=== PATIENT | female | born 2005 | race African-American/Black ===

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

== ENCOUNTER 2025-01-01 19:01 | Emergency (ER) | payer OTHER ==
[2025-01-01] MEDS ORDERED: Ondansetron PF 4 MG/2 ML Vial ONE (19:23)
[2025-01-01 19:31] LABS: Bilirubin Neg (Negative); Blood, Urine 10 (Negative); Clarity Clear (Clear); Glucose, Urine (Dipstick) Normal (Negative); Ketone, Urine Negative (Negative); Leukocyte 500 (Negative); Nitrite Negative (Negative); Protein, Urine (Dipstick) 15 mg/dl (Neg-Trace); Specific Gravity, Urine 1.025 (1.005-1.030); Urobilinogen Normal mg/dL (Less than 2)
[2025-01-01 19:48] LABS: Bacteria/HPF Rare-Few HPF (None Seen); CAUTI Indications for Culture Pelvic or flank pain; Mucous/LPF Rare LPF (<2+); RBC/HPF 0-3 HPF (0-3); Squamous Epithelial 0-3 HPF (0-3)
[2025-01-01 19:49] LABS: Sperm/HPF Rare HPF (None Seen)
[2025-01-01 19:50] LABS: Urine Culture Reflex Yes Yes
[2025-01-01 20:07] LABS: #Basophils Less than 0.03 10x3/uL (0.0-0.2); #Eosinophils 0.13 10x3/uL (0.0-0.5); #Monocytes 0.56 10x3/uL (0.0-1.1); #Neutrophils 6.36 10x3/uL (1.5-8.4); %Basophils 0.2 % (0.0-2.0); %Eosinophils 1.4 % (0.0-6.0); %Lymphocytes 23.4 % (18.0-47.0); %Neutrophils 68.8 % (40.0-75.0); Hematocrit 35.5 % (34.9-44.5); Hemoglobin 11.1 g/dL (12.0-15.5); Mean Corpuscular HGB CONC 31.3 g/dL (32.0-36.0); Mean Corpuscular Hemoglobin 23.3 pg (27.0-33.0); Mean Corpuscular Volume 74.6 fL (81.6-98.3); Mean Platelet Volume 9.9 fL (7.4-10.4); Platelet Count 320 10x3/uL (150-450); RBC Distribution Width 14.8 % (11.5-14.5); Red Blood Cell (RBC) Count 4.76 10x6/uL (3.90-5.03); White Blood Cell (WBC) Count 9.26 10x3/uL (3.5-10.5)
[2025-01-01] MEDS ORDERED: Acetaminophen 500 MG TAB ONE (20:14)
[2025-01-01 20:16] LABS: ALT (SGPT) 9 U/L (Less than 34); AST (SGOT) 22 U/L (11-34); Albumin 3.7 g/dL (3.1-4.5); Alkaline Phosphatase 80 U/L (40-100); Anion Gap 14 mmol/L (10-20); BUN (Urea Nitrogen) 5 mg/dL (8.4-21.0); Bilirubin, Total 0.2 mg/dL (0.3-1.2); Calc. Creatinine Clearance 0 mL/min (70-130); Calcium 9.6 mg/dL (7.8-10.44); Carbon Dioxide 20 mmol/L (22-29); Chloride 106 mmol/L (98-107); Estimated GFR 135; Globulin 4.4 g/dL (2.4-3.5); Glucose 92 mg/dL (70-105); Lipase 55 U/L (8-78); Magnesium 1.8 mg/dL (1.7-2.2); Potassium 3.3 mmol/L (3.5-5.1); Protein, Total 8.1 g/dL (6.0-8.3); Sodium 137 mmol/L (136-145)
[2025-01-01 20:28] LABS: Large Platelets SLIGHT (None Seen); MDiff Complete? YES; Microcytosis SLIGHT = 6-15 cells (100X) (0-5/hpf); Platelet Adequacy Comment Appears Adequate
[2025-01-01] MEDS ORDERED: Potassium Chloride 20 MEQ TAB ONE (20:43)
== END 2025-01-01 21:27 | disposition home or self-care (01) ==
LOC: CSHERS 19:01
DX: O21.0 Mild hyperemesis gravidarum (principal); Z3A.12 12 weeks gestation of pregnancy
CPT/HCPCS: 80053; 81001; 83690; 83735; 84702; 85025; 87086; 96374; J2405

== ENCOUNTER 2025-06-18 17:36 | Inpatient (IN) | payer BC ==
[2025-06-18 18:51] VITALS: BMI 22.0
[2025-06-18] MEDS ORDERED: hydrALAZINE 20 MG/ML VIAL SLOW IVP PRN ×2 (20:01→20:39)
[2025-06-18] MEDS ORDERED: Tranexamic Acid 1,000 MG/10 ML VIAL IVP PRN (20:39)
[2025-06-18] MEDS ORDERED: Ondansetron PF 4 MG/2 ML Vial IVP PRN (20:39)
[2025-06-18] MEDS ORDERED: Methylergonovine 0.2 MG/ML VIAL IM PRN (20:39)
[2025-06-18] MEDS ORDERED: Diphenoxylate HCl/Atropine Tablet PO PRN ×2 (20:39)
[2025-06-18] MEDS ORDERED: Acetaminophen 500 MG TAB PO PRN (20:39)
[2025-06-18] MEDS ORDERED: Lidocaine 1% (PF) 30 ML VIAL SC PRN (20:39)
[2025-06-18] MEDS ORDERED: Carboprost 250 MCG/ML AMP IM PRN (20:39)
[2025-06-18] MEDS ORDERED: Oxytocin 30 units/NS 500 ML 500 ML IV SCH (20:45)
[2025-06-18 21:06] LABS: Hematocrit 30.8 % (34.9-44.5); Hemoglobin 8.8 g/dL (12.0-15.5); Mean Corpuscular Hemoglobin 19.5 pg (27.0-33.0); Mean Corpuscular Volume 68.3 fL (81.6-98.3); Platelet Count 174 10x3/uL (150-450); Red Blood Cell (RBC) Count 4.51 10x6/uL (3.90-5.03); White Blood Cell (WBC) Count 8.30 10x3/uL (3.5-10.5)
[2025-06-18] MEDS: Penicillin G Potassium 5 MILL.UNITS in Sodium Chloride 0.9% 100 ML IVPB SCH (21:35)
[2025-06-18] MEDS: fentaNYL/Ropivacaine Epidural 100 ML ONE (21:41)
[2025-06-18 21:43] LABS: Hep B Surf Ag - L&D Non-Reactive S/CO (NonReactive); Syphilis Antibody Index 0.19 S/CO (<1.00 Non-Reactive)
[2025-06-18] MEDS ORDERED: diphenhydrAMINE 50 MG/ML VIAL IVP PRN (21:49)
[2025-06-18] MEDS ORDERED: fentaNYL 2 mcg/Ropivacaine 0.2% Epidural 100 ML CADD EPIDURAL SCH (22:00)
[2025-06-18] MEDS ORDERED: Communication Order-Pharmacy FS SCH (22:00)
[2025-06-18] MEDS ORDERED: Azithromycin 250 MG TAB PO SCH (22:30)
[2025-06-18] MEDS: Azithromycin 250 MG TAB PO SCH (23:10)
[2025-06-19] MEDS: Ondansetron PF 4 MG/2 ML Vial IVP PRN (00:15)
[2025-06-19] MEDS: Penicillin G 2.5 MILL.units 2.5 MILL.UNITS in Premix 1 BAG IVPB SCH (01:58)
[2025-06-19] MEDS: Oxytocin 30 units/NS 500 ML 500 ML IV SCH (08:16)
[2025-06-19] MEDS: Ibuprofen 800 MG TAB PO PRN (10:05)
[2025-06-19] MEDS ORDERED: hydrALAZINE 20 MG/ML VIAL SLOW IVP PRN (10:28)
[2025-06-19] MEDS ORDERED: diphenhydrAMINE 25 MG CAP PO PRN (10:28)
[2025-06-19] MEDS ORDERED: Lanolin Ointment 7 GM TUBE TOP PRN (10:28)
[2025-06-19] MEDS ORDERED: Bisacodyl 10 MG SUPP PR PRN (10:28)
[2025-06-19] MEDS ORDERED: Milk Of Magnesia 30 ML UDCUP PO PRN (10:28)
[2025-06-19] MEDS: Acetaminophen 500 MG TAB PO SCH (12:56)
[2025-06-19] MEDS: Boostrix 0.5 ML (Tdap) VIAL (>/=7 yrs of age) IM ONE (12:57)
[2025-06-19] MEDS: Acetaminophen 325 MG TAB PO PRN (15:41)
[2025-06-19] MEDS: Ibuprofen 800 MG TAB PO SCH (18:07)
[2025-06-19] MEDS: Ferrous Sulfate 325 MG TAB PO SCH (18:07)
[2025-06-20 04:48] LABS: Chlamydia by PCR, Vaginal Swab DETECTED (NotDetected); GC by PCR, Vaginal Swab Not Detected (NotDetected)
[2025-06-20 09:08] LABS: Hematocrit 27.2 % (34.9-44.5); Hemoglobin 7.7 g/dL (12.0-15.5); Mean Corpuscular Hemoglobin 19.3 pg (27.0-33.0); Mean Corpuscular Volume 68.0 fL (81.6-98.3); Red Blood Cell (RBC) Count 4.00 10x6/uL (3.90-5.03); White Blood Cell (WBC) Count 9.36 10x3/uL (3.5-10.5)
[2025-06-20 09:09] LABS: #Basophils Less than 0.03 10x3/uL (0.0-0.2); #Eosinophils 0.12 10x3/uL (0.0-0.5); #Monocytes 0.70 10x3/uL (0.0-1.1); #Neutrophils 6.56 10x3/uL (1.5-8.4); %Basophils 0.2 % (0.0-2.0); %Eosinophils 1.3 % (0.0-6.0); %Lymphocytes 20.5 % (18.0-47.0); %Monocytes 7.5 % (0.0-10.0); %Neutrophils 70.1 % (40.0-75.0)
[2025-06-20 09:38] LABS: Anisocytosis SLIGHT = 6-15 cells (100X) (0-5/hpf); Microcytosis MODERATE=15-30 cells (100X) (0-5/hpf); Ovalocytes SLIGHT = 2-5 cells (100X) (0-1/hpf); Platelet Count 134 10x3/uL (130-400); Polychromasia SLIGHT = 2-3 cells (100X) (0-2/hpf)
[2025-06-20 09:41] LABS: Platelet Adequacy Comment Appears Adequate
[2025-06-21 07:29] VITALS: BP 90/54; TEMP 98.3
== END 2025-06-21 13:46 | disposition home or self-care (01) | DRG 807 ==
LOC: CSHLD/OP 17:36 → CSHLD 20:44 → CSHPED 06-19 10:40 → UNDODISIN 06-20 14:15
PROVIDERS: ADMIT Obstetrics & Gynecology; ATTEND Obstetrics & Gynecology
PROC: 10E0XZZ Delivery of Products of Conception, External Approach (ICD-10-PCS; principal; 2025-06-19)
PROC: 10907ZC Drainage of Amniotic Fluid, Therapeutic from Products of Conception, Via Natural or Artificial Opening (ICD-10-PCS; 2025-06-19)
PROC: 4A1HXCZ Monitoring of Products of Conception, Cardiac Rate, External Approach (ICD-10-PCS; 2025-06-19)
DX: O99.02 Anemia complicating childbirth (principal); Z37.0 Single live birth; O36.5930 Maternal care for other known or suspected poor fetal growth, third trimester, not applicable or unspecified; Z79.899 Other long term (current) drug therapy; Z3A.36 36 weeks gestation of pregnancy
CPT/HCPCS: 36415; 51702; 85025; 85027; 85461; 86780; 86850; 86870; 86900; 86901; 87340; 87491; 87591; 90384; 96372; 99285; J2405; J2540; J2590